=== PATIENT | male | born 1960 | race Caucasian/White ===

== ENCOUNTER 2016-11-21 06:31 | Emergency (ER) | payer MEDICAID, OTHER ==
[~2016-11-21] VITALS: Ht 167.6 cm; Wt 100.0 kg
[2016-11-21] MEDS ORDERED: SOD CHLORIDE 0.9% 1,000 ML IV STA (06:32)
[2016-11-21] MEDS ORDERED: IPRATROPIUM (NEB) 0.5 MG/2.5 ML AMP INH STA ×2 (06:32→07:34)
[2016-11-21] MEDS ORDERED: METHYLPREDNISOLONE 125 MG INJ IV STA (06:32)
[2016-11-21] MEDS ORDERED: ALBUTEROL 0.5% (NEB) 2.5 MG/0.5 ML AMP INH STA ×2 (06:32→07:34)
[2016-11-21 06:36] VITALS: BP 196/121; PULSE 79; RESP 16; TEMP 98.8; Ht 167.6 cm; Wt 100.0 kg
--- NOTE | 2016-11-21 06:50 | ERD ---
ER Documentation Chief Complaint Date/Time DATE: 11/21/16 TIME: 06:36 Chief Complaint HPI This is a 56-year-old male with a known history of asthma that was brought into the emergency department by EMS after he woke 2 hours prior to arrival with a sudden onset of difficulty in breathing. The patient utilized his albuterol inhaler prior to arrival with no improvement of his symptoms. He indicates that he has never required intubation in the past for his asthma and his last hospital visit was 2 months prior to arrival in August 2016 at [facility], however the patient did not require admission and was treated and released in the emergency room for severe asthma exacerbation. The patient states for the past few days he has had a productive cough with whitish sputum. The patient denies any recent fever shaking or chills. He denies a headache or changes in vision. He has no chest pain or pressure that radiates to the neck arm back or jaw. He denies any swelling of his lower extremities and no recent travel or prolonged immobilization. EMS indicated that the patient was hypertensive with a systolic of 200mmHg and the patient states he has no past medical history of hypertension. ROS All systems reviewed and are negative except as per history of present illness. Medications Home Meds Reported Medications Albuterol Sulfate* (Ventolin HFA*) 18 Gm Hfa.aer.ad, 2 PUFF INHALATION Q6H Y for WHEEZING AND SOB, #1 INHALER 11/21/16 Allergies Allergies: Coded Allergies: No Known Allergy (Unverified , 11/21/16) Physical Exam Vitals Vital Signs Date Time Temp Pulse Resp B/P Pulse Ox O2 Delivery O2 Flow Rate FiO2 11/21/16 06:38 87 22 96 Aerosol 7.0 11/21/16 06:36 Simple Mask 11/21/16 06:36 98.8 75 16 196/121 98 11/21/16 06:36 98.8 79 16 196/121 98 High Flow 10.0 Physical Exam Constitutional:Well-developed. Well-nourished. In severe respiratory distress HEENT:Normocephalic. Atraumatic.Pupils were equal round reactive to light. Moist mucous membranes.No tonsillar exudates. Neck: No nuchal rigidity. No lymphadenopathy. No posterior cervical spine tenderness or step-offs. Respiratory: Patient not using accessory muscles of respiration. Wheezing on end auscultation bilaterally. Patient unable to speak more than 2 words at a time before becoming short of breath Cardiovascular: Regular rate regular rhythm.No murmurs. No rubs were appreciated.S1, S2 normal. Distal pulses are palpable 2+ bilaterally. GI: Abdomen was soft. Nontender. Non Distended. No pulsatile abdominal masses or bruits. No rebound. No guarding. Bowel sounds were present and normal. Muscle skeletal: Full range of motion of both the upper and lower extremities bilaterally.Normal muscle tone.No assymetrical calf tenderness or swelling. Skin: No petechia, no purpura. No lesions on the palms or the soles of the feet. No maculopapular rash. No pitting edema the bilateral lower extremities NEURO: Patient was alert, awake, orientated x3.No facial droop. Gait observed and normal with no ataxia.Speech had regular rate and rhythm. No focal neurological deficits. Result Diagram: 11/21/16 0645 11/21/16 0645 Results 24 hrs Laboratory Tests Test 11/21/16 06:45 Activated Partial Thromboplast Time 31.4Sec Alanine Aminotransferase (ALT/SGPT) 28IU/L Albumin 4.5g/dl Albumin/Globulin Ratio 1.12 Alkaline Phosphatase 123IU/L Anion Gap 18 Aspartate Amino Transf (AST/SGOT) 19IU/L B-Type Natriuretic Peptide 57PG/ML Basophils # 0.110^3/ul Basophils % 0.9% Blood Urea Nitrogen 10mg/dl Calcium Level 9.6mg/dl Carbon Dioxide Level 29mmol/L Chloride Level 99mmol/L Creatine Kinase 87IU/L Creatine Kinase Index 1.7 Creatinine 0.66mg/dl Creatinine Kinase MB (Mass) 1.47ng/ml Direct Bilirubin 0.00mg/dl Eosinophils # 0.610^3/ul Eosinophils % 6.1% Globulin 4.00g/dl Glucose Level 192mg/dl Hematocrit 44.9% Hemoglobin 14.6g/dl INR International Normalized Ratio 0.90 Indirect Bilirubin 0.3mg/dl Lymphocytes # 2.010^3/ul Lymphocytes % 20.0% Mean Corpuscular Hemoglobin 27.3pg Mean Corpuscular Hemoglobin Concent 32.5g/dl Mean Corpuscular Volume 84.1fl Mean Platelet Volume 10.5fl Monocytes # 0.510^3/ul Monocytes % 5.2% Neutrophils # 6.610^3/ul Neutrophils % 67.0% Nucleated Red Blood Cells # 0.010^3/ul Nucleated Red Blood Cells % 0.0/100WBC Platelet Count 93127^3/UL Potassium Level 4.1mmol/L Prothrombin Time 12.1Sec Prothrombin Time Ratio 0.9 Red Blood Count 5.3410^6/ul Red Cell Distribution Width 13.7% Sodium Level 142mmol/L Total Bilirubin 0.3mg/dl Total Protein 8.5g/dl Troponin I 0.022ng/ml White Blood Count 9.910^3/ul Current Medications Medications (Trade) Dose Ordered Sig/Lefty Route PRN Reason Start Time Stop Time Status Last Admin Dose Admin Sodium Chloride (NS) 1,000 ml @ 1,000 mls/hr Q1H STAT IV 11/21/16 06:32 11/21/16 07:31 DC Albuterol (Proventil 0.5% (Neb)) 10 mg ONCE STAT INH 11/21/16 06:32 11/21/16 06:36 DC 11/21/16 06:37 Ipratropium [place] (Atrovent 0.02% (Neb)) 1 mg ONCE STAT INH 11/21/16 06:32 11/21/16 06:36 DC 11/21/16 06:37 Methylprednisolone Sodium Succinate (Solu-Medrol) 125 mg ONCE STAT IV 11/21/16 06:32 11/21/16 06:36 DC Clonidine (Catapres) 0.1 mg ONCE STAT PO 11/21/16 06:51 11/21/16 06:52 DC Clonidine (Catapres) 0.1 mg ONCE ONCE PO 11/21/16 07:30 11/21/16 07:31 DC Procedures/MDM The patient presented to the emergency department with dyspnea. My differential diagnosis included but was not limited to upper airway obstruction, CHF, pulmonary embolism, cardiac ischemia, pneumonia, pneumothorax, anemia, drug overdose, pulmonary edema, COPD or asthma. The patient was immediately placed in a panel monitor continuous pulse oximetry and IV access was established by nursing staff. The patient received a continuous nebulizer treatment of albuterol Atrovent. He was given 125 mg of Solu-Medrol. I obtained a chest radiograph which showed no evidence of infectious process such as pneumonia and no pulmonary vascular congestion. BNP was normal and I did feel the patient's dyspnea was a result of an asthma exacerbation. After the patient received continuous nebulizer treatments upon reevaluation he was speaking in full complete sentences, not using accessory muscles of respiration and there is no wheezing on end auscultation. The patient was not hypoxic. He stated he felt complete resolution of his dyspnea This patient also presented to the emergency department with severely elevated blood pressure. My differential diagnosis included but was not limited to conditions that could end-organ damage such as acute coronary syndrome, acute pulmonary edema, aortic dissection, subarachnoid hemorrhage, intracerebral hemorrhage, cerebral infarction, withdrawal syndromes from beta blockers, or states of catecholamine excess such as pheochromocytoma or drug intoxication. Ancillary lab work was obtained. There was no elevation in the BUN and creatinine to suggest acute renal failure. Electrolytes were normal. Cardiac enzyme was normal and the 12 lead EKG showed no acute ischemic changes or left ventricular hypertrophy. 12 Lead EKG tracing ordered and reviewed by myself showed: Normal sinus rhythm of 77 bpm and no arrhythmia. PA interval normal. QRS duration normal. No ST segment elevation No ST segment depression. T-wave inversion in lead V6 Given that the patient had an absence of cerebral, ocular, cardiac or renal damage the hypertensive urgency was treated with oral agents in the emergency room with improvement of the patients blood pressure. The patient likely appeared to be complaint with primary care physician and will follow up with their PCP in the next 24-48 hours. They were instructed to return to the emergency department at anytime if there is any worsening of their condition such as development of chest pain or a headache. They were instructed to resume previous medication regimen or initiate a suitable medication regimen under care of the PCP to enable proper monitoring for drug reactions. The patient was also informed on the adverse side effects and adverse drug interactions of the medications prescribed to them by myself. The patient gave informed consent to the prescription of the new medication. Departure Diagnosis: Primary Impression: Asthma attack Additional Impression: Accelerated hypertension Condition: Serious CEDRIC LONGO Nov 21, 2016 06:48
[2016-11-21 07:03] LABS: ADD SCAN DIFF NO
[2016-11-21 07:05] LABS: BASOPHIL # 0.1 10^3/ul (0.0-0.1); BASOPHILS % 0.9 % (0.0-2.0); EOSINOPHILS # 0.6 10^3/ul (0.0-0.5); EOSINOPHILS % 6.1 % (0.0-7.0); HEMATOCRIT 44.9 % (42.0-52.0); HEMOGLOBIN 14.6 g/dl (14.0-18.0); MEAN CORPUSCULAR HEMOGLOBIN 27.3 pg (29.0-33.0); MEAN CORPUSCULAR HGB CONC 32.5 g/dl (32.0-37.0); MEAN CORPUSCULAR VOLUME 84.1 fl (82.0-101.0); MEAN PLATELET VOLUME 10.5 fl (7.4-10.4); MONOCYTE # 0.5 10^3/ul (0.3-0.9); MONOCYTES % 5.2 % (0.0-11.0); NEUTROPHIL # 6.6 10^3/ul (1.6-7.5); PLATELET COUNT 261 10^3/UL (140-415); RED BLOOD COUNT 5.34 10^6/ul (4.70-6.10); RED CELL DISTRIBUTION WIDTH 13.7 % (11.5-14.5); WHITE BLOOD COUNT 9.9 10^3/ul (4.8-10.8)
[2016-11-21] MEDS ORDERED: METHYLPREDNISOLONE 125 MG INJ ONE (07:07)
[2016-11-21] MEDS ORDERED: ALBU18HF INHALATION (07:13)
[2016-11-21 07:15] LABS: INR 0.9; PARTIAL THROMBOPLASTIN TIME 31.4 Sec (25.0-35.0); PROTIME 12.1 Sec (12.2-14.2); PT RATIO 0.9
[2016-11-21 07:16] LABS: ALBUMIN 4.5 g/dl (3.3-4.9)
[2016-11-21 07:17] LABS: POTASSIUM 4.1 mmol/L (3.5-5.1)
[2016-11-21 07:18] LABS: CREATININE 0.66 mg/dl (0.61-1.24)
[2016-11-21 07:19] LABS: ALBUMIN/GLOBULIN RATIO 1.12; BILIRUBIN,INDIRECT 0.3 mg/dl (0-1.1); BILIRUBIN,TOTAL 0.3 mg/dl (0.2-1.3); TOTAL PROTEIN 8.5 g/dl (6.1-8.1)
[2016-11-21 07:20] LABS: CALCIUM 9.6 mg/dl (8.4-10.2)
[2016-11-21 07:29] LABS: CK-MB 1.47 ng/ml (0.0-2.4); TROPONIN-I 0.022 ng/ml (0.00-0.12)
[2016-11-21] MEDS ORDERED: ALBU2.5V3 NEB (07:39)
[2016-11-21] MEDS ORDERED: PRED50TA PO (07:39)
[2016-11-21] MEDS ORDERED: CLON-339 PO (07:39)
--- NOTE | 2016-11-21 08:06 | RADRPT ---
PROCEDURE: XR Chest. CLINICAL INDICATION: Chest pain TECHNIQUE: An AP view of the chest was obtained. COMPARISON: No prior exam is available for comparison. FINDINGS: There is prominence of the interstitial markings. No pleural effusion or pneumothorax is seen. Th e cardiomediastinal silhouette is mildly enlarged . Calcifications are seen within the aortic arch. The osseous structures demonstrate senescent changes. IMPRESSION: 1. Mild prominence of the interstitial markings, may reflect mild underlying interstitial edema or chronic lung changes. 2. Mild cardiomegaly and aortic atherosclerosis. RPTAT: HH .Constanza Sotomayor MD, MD Date Time Electronically viewed and signed by .Constanza Sotomayor MD, on 11/21/2016 08:06 .G/
[2016-11-21] MEDS ORDERED: ALBU8.5H3 INH (09:09)
== END 2016-11-21 09:15 | disposition home or self-care (01) ==
LOC: WCC 06:31 → E/R 09:15
DX: J45.901 Unspecified asthma with (acute) exacerbation (principal); R40.2252 Coma scale, best verbal response, oriented, at arrival to emergency department; I10 Essential (primary) hypertension; R07.9 Chest pain, unspecified; R40.2362 Coma scale, best motor response, obeys commands, at arrival to emergency department; R40.2142 Coma scale, eyes open, spontaneous, at arrival to emergency department
CPT/HCPCS: 71010; 80053; 82550; 82553; 83880; 84484; 85025; 85610; 85730; 93005; 94644; 94645; 96374; J2930; J7030; Z7502; Z7610